=== PATIENT | male | born 1955 | race Caucasian/White ===

== ENCOUNTER 2017-01-11 13:44 | Day surgery (SDC) | payer BC ==
--- NOTE | 2017-01-11 06:08 | History and Physical Report ---
DATE: 01/11/2017. CHIEF COMPLAINT AND HISTORY OF CHIEF COMPLAINT: This patient presents with a history of an intractable lumbar radiculitis. Due to the failure of all therapy and the success of the spinal cord stimulator trial on December 26, 2016, he presents today for implantation of a permanent system. PAST MEDICAL HISTORY: Noncontributory. PAST SURGICAL HISTORY: None identified. EMPLOYMENT STATUS: Retired. MEDICATIONS ON ADMISSION: To be provided. ALLERGIES: None. REVIEW OF SYSTEMS: The patient seems appropriate and in no acute distress. The remainder of the systems review is noncontributory. PHYSICAL EXAMINATION: General: Height is 5 feet, 11 inches. Weight is 220 pounds. Vital Signs: Blood pressure is 140/80, pulse 80, respirations 20. Musculoskeletal: Current examination shows diffuse tenderness in the lumbar spine. Range of motion does produce pain throughout the low back and extending into the lower extremities. Ambulation: No assistive device utilized. Neurologic: Cranial nerves are intact. IMPRESSION: LUMBAR RADICULITIS, ICD-10 CODE M54.16 AND M54.17. PLAN: The patient is here for implantation of a permanent spinal cord stimulator after a successful trial due to the failure of all therapy and the success of his trial. The potential risks, side effects, and complications have all been carefully reviewed and discussed. Information from the woods rider also outlining the potential risks, side effects, and complications , including the CD ROM, has been provided and reviewed. The risks of dural puncture, nerve root injury, spinal headaches, and spinal cord trauma have all been discussed. He is here for permanent implant and has agreed to all of the above. The procedure will be considered outpatient, although an overnight stay will be evaluated. CYDNEY MALIN D.O. Date & Time JOB NUMBER: [id number] cc: Linette Kirkland
[~2017-01-11 13:44] MED LIST: ACETAMINOPHEN 1,000 MG/100 ML BTL IV ONE; FAMOTIDINE 20MG TABLET PO ONE; MECLIZINE 25 MG TABLET PO ONE; METOCLOPRAMIDE 10 MG TABLET PO ONE; VANCOMYCIN HCL 1,000 MG in 0.9 % SODIUM CHLORIDE 250ML 250 ML IVPB ONE
[2017-01-11] MEDS ORDERED: FENTANYL PF 100MCG/2ML VIAL IV ONE (13:45)
[2017-01-11] MEDS ORDERED: LIDOCAINE 2% MDV (20MG/ML) 20ML VIAL IV ONE (13:45)
[2017-01-11] MEDS ORDERED: MIDAZOLAM HCL 2MG/2ML VIAL IV ONE (13:45)
[2017-01-11] MEDS ORDERED: VANCOMYCIN HCL 500 MG VIAL IV ONE (13:45)
[2017-01-11] MEDS ORDERED: PROPOFOL 10 MG/ML VIAL IV ONE (13:45)
[2017-01-11] MEDS ORDERED: HYDROMORPHONE HCL 2 MG/ML VIAL IV ONE (13:45)
[2017-01-11] MEDS ORDERED: RINGERS SOLUTION,LACTATED 1,000 ML IV PRN (19:04)
[2017-01-11] MEDS ORDERED: SENNOSIDES/DOCUSATE SODIUM UD CAPSULE PO PRN ×2 (19:07)
[2017-01-11] MEDS ORDERED: AL HYDROX/MAG HYDROX 30ML UD PO PRN (19:07)
[2017-01-11] MEDS ORDERED: ACETAMINOPHEN 325 MG TAB PO PRN (19:07)
[2017-01-11] MEDS ORDERED: METOCLOPRAMIDE HCL 10 MG/2 ML VIAL IV PRN (19:07)
[2017-01-11] MEDS ORDERED: HYDROCODONE/APAP 7.5/325MG TABLET PO PRN ×2 (19:34)
[2017-01-11] MEDS ORDERED: OXYCODONE/APAP 10MG-325MG TABLET PO PRN (19:34)
[2017-01-11] MEDS ORDERED: HYDROMORPHONE HCL 1MG/ML **SYRINGE IM PRN ×2 (19:34)
[2017-01-11] MEDS: OXYCODONE/APAP 10MG-325MG TABLET PO PRN (20:00)
[2017-01-11] MEDS: CLONAZEPAM 1MG TABLET PO SCH (20:33)
[2017-01-11] MEDS ORDERED: GABAPENTIN 300 MG CAPSULE PO SCH (22:00)
[2017-01-12] MEDS: OXYCODONE/APAP 10MG-325MG TABLET PO PRN (01:32)
[2017-01-12] MEDS ORDERED: VANCOMYCIN HCL 1,000 MG in 0.9 % SODIUM CHLORIDE 250ML 250 ML IVPB SCH (02:30)
[2017-01-12] MEDS: CLONAZEPAM 1MG TABLET PO SCH (07:37)
[2017-01-12] MEDS ORDERED: VENLAFAXINE ER 37.5 MG CAPSULE PO SCH (10:00)
--- NOTE | 2017-01-12 14:52 | RADIOLOGY REPORT ---
EXAM: AP LUMBAR SPINE HISTORY: STIMULATOR IMPLANT. TECHNIQUE: AP view of the lumbar spine was obtained. Comparison: None. FINDINGS: Two stimulator leads overlie the thoracic spine extending cephalad. The leads extend to the upper T7 level. IMPRESSION: STIMULATOR LEADS OVERLYING THE THORACIC SPINE ABOVE. JOB NUMBER: [id number] MTDD
--- NOTE | 2017-01-12 16:45 | Operative Note - Ferro ---
DATE OF SURGERY: 01/11/17 PREOPERATIVE DIAGNOSIS: LUMBAR RADICULITIS, ICD-10 CODE = M54.16 AND M54.17. OPERATION: 1. FLUOROSCOPICALLY-GUIDED RIGHT EPIDURAL ACCESS T11-12. PLACEMENT OF SPINAL CORD STIMULATOR LEAD 1, A [employer] INFINION 16 WITH 16 ELECTRODES POSITIONED LEFT T7. 2. FLUOROSCOPICALLY-GUIDED EPIDURAL ACCESS RIGHT T10-11. PLACEMENT OF SPINAL CORD STIMULATOR LEAD 2, A [employer] INFINION 16 WITH 16 ELECTRODES POSITIONED RIGHT T7. 3. COMPLEX PROGRAMMING LEAD 1 OVER 20 MINUTES FOLLOWED BY COMPLEX PROGRAMMING OF LEAD 2 OVER 20 MINUTES. 4. INCISION, SUBCUTANEOUS DISSECTION, AND ANCHORING OF LEAD 1 AND LEAD 2 TO SUPRASPINOUS FASCIA USING AN ANCHORING DEVICE AND NONABSORBABLE SUTURE. 5. INCISION, SUBCUTANEOUS DISSECTION, AND CREATION OF A SUBCUTANEOUS POUCH AT RIGHT POSTERIOR GLUTEAL MARGIN FOR GENERATOR IDENTIFIED A [employer] PROGRAMMABLE RECHARGEABLE. 6. TUNNELING BETWEEN POUCHES, PLACEMENT OF EXTERNAL PORTION OF LEAD 1 AND LEAD 2 INTO GENERATOR POUCH, EACH LEAD INTERFACED WITH GENERATOR. 7. PLACEMENT OF GENERATOR POUCH SECURING TO FASCIA WITH NONABSORBABLE SUTURE. PLACEMENT OF LEADS INTO POUCH. CLOSURE OF INCISIONS, VICRYL FOR FASCIA AND RUNNING SUBCUTICULAR VICRYL FOR SKIN. DERMABOND CLOSURE. 8. COMPLEX PROGRAMMING INTERNAL GENERATOR HOME USE, TWO STIMULATORS, RECOVERY ROOM, 20 MINUTES. SURGEON: CYDNEY MALIN D.O. ANESTHESIA: LOCAL SEDATION. ANESTHESIA PROVIDER: FABIO RAHMAN CRNA. INDICATION: This patient presents with a history of intractable lumbar radiculitis. Due to the failure of all therapies, a stimulator trial was conducted with 75 to 90% pain control. Due to the failure of all therapies and the successful of the trial, he presents today for implantation of a permanent system. PROCEDURE: Intravenous line, vital sign monitoring, IV sedation, prepped and draped in sterile technique. Patient position prone. Sterile prep. Sterile technique. On the right, the skin is infiltrated at the epidural margins T11-12 and 10-11. Using two separate curved access Epimed needles with loss-of- resistance, the spaces was accessed. At 11-12, spinal cord stimulator lead 1, a [employer] Infinion 16 with 16 electrodes, positioned left at T7. With the epidural access right at 10-11, spinal cord stimulator lead 2, a [employer] Infinion 16 with 16 electrodes positioned right at T7. Complex programming of lead 1 over 20 minutes followed by complex programming of lead 2 over 20 minutes resulting in patterns of stimulation across the back and into the legs; patient indicating we were in all of the areas of the pain. He was given the option to implant, continue to program, or remove; he opted to implant. Questions repeated with the same response. The skin below both needles was infiltrated, then the incision made, and subcutaneous dissection was conducted to the supraspinous fascia. Once the needles were removed, each lead was anchored to the fascia with an anchoring device, [employer], and nonabsorbable suture. At the right posterior gluteal margin, a site picked by the patient for the generator, skin infiltrated, incision made, and subcutaneous dissection was conducted to form a pouch of suitable size and depth for the generator identified as a [employer] Programmable Rechargeable. Antibiotic irrigation. Bovie for hemostasis. A tunneling tool was then used to carry the leads into the generator pouch and each lead was interfaced with the generator. The generator was placed into the pouch and secured with a nonabsorbable suture. The leads were placed into their own pouch and then both incisions were closed Vicryl for fascia and a running subcuticular Vicryl for skin. Dermabond closure to approximate the wound. He was transported to the Recovery Room stable showing no side-effects from the procedure or the sedation. He will be kept overnight for observation because of the time of day. DISCHARGE INSTRUCTIONS IN THE MORNIN. Sites to remain clean and dry although the Dermabond will allow showering. 2. Standard medications resumed including Levaquin, the antibiotic, 500 mg once a day for 14 days. 3. All other medications resumed. 4. His activities to remain low until he is seen in the office in 5-7 days. That appointment will be scheduled by the office contacting the patient at home. He will be fitted for lumbar brace or support, which will help maintain restrictions that, if exceeded, could cause migration of the leads. The lumbar support will also apply pressure to the wounds facilitating healing and preventing seroma formation. He will wear the brace except when sleeping. All other instructions provided, numbers to contact, problems given, he was will be contacted by the office for the follow-up. cc: Dr. Tirso Espitia JOB NUMBER: [id number] MTDD
== END 2017-01-12 09:25 | disposition home or self-care (01) ==
LOC: SUR 13:44 → MEDSURG 17:50 → SUR 01-12 09:25
PROVIDERS: ATTEND Pain Medicine Interventional Pain Medicine
DX: M54.16 Radiculopathy, lumbar region (principal); M54.17 Radiculopathy, lumbosacral region; I10 Essential (primary) hypertension; E78.00 Pure hypercholesterolemia, unspecified
CPT/HCPCS: 95972; 72020; 63685; 63650 ×2; 01936; J3370 ×2; J3010; J1170; J7050

== ENCOUNTER 2017-03-03 09:41 | Day surgery (SDC) | payer BC ==
--- NOTE | 2017-03-03 07:16 | History and Physical Report ---
DATE: 03/02/2017. CHIEF COMPLAINT AND HISTORY OF CHIEF COMPLAINT: This patient presents with a history of intractable cervical radiculitis. Due to the failure of all therapy a spinal cord stimulator trial was conducted on 01/30/2017 with 75 to 85 percent pain control. Due to the failure of therapy and the success of the trial, he presents today for implantation of a permanent system. PAST MEDICAL HISTORY: Hypertension, bladder dysfunction, peripheral neuropathy. PAST SURGICAL HISTORY: Lumbar stimulator implant. MEDICATIONS ON ADMISSION: To be provided. ALLERGIES: None listed. REVIEW OF SYSTEMS: The patient is appropriate and in no acute distress. The remainder of the systems review shows [] PHYSICAL EXAMINATION: General: Height is 5 feet, 11 inches. Weight is 220 pounds. Vital Signs: Not available. HEENT: Within normal limits. Lungs: Clear. Heart: Regular rate and rhythm. Abdomen: Nontender. Musculoskeletal: Examination of the musculoskeletal system shows diffuse tenderness in the cervical spine. Range of motion produces pain into both upper extremities across what could be a distribution along the 5-6 and 6-7 pattern in thumb and first, middle, and small fingers. Hand grasp and road manager strength are somewhat reduced. Sensory field function is intact. Motor function appears to be somewhat reduced generally. Ambulation: No assistive device utilized. Neurologic: Cranial nerves are intact. IMPRESSION: CERVICAL RADICULITIS, ICD-10 CODE M54.13. PLAN: The patient is here, after a successful cervical stimulator, for implantation of a permanent system. The potential risks, side effects, and complications have been carefully reviewed and discussed. The procedure will be considered outpatient, although an overnight stay will be evaluated. JOB NUMBER: [id number] cc: Tirso Espitia M.D. SARA
[~2017-03-03 09:41] MED LIST changes: +CEFAZOLIN 2 Gram 2 GM/50 ML BAG IVPB ONE; -VANCOMYCIN HCL 1,000 MG in 0.9 % SODIUM CHLORIDE 250ML 250 ML IVPB ONE
[2017-03-03] MEDS ORDERED: BUPIVACAINE 0.75% W/EPI MPF 30ML VIAL IVP ONE (09:42)
[2017-03-03] MEDS ORDERED: PROPOFOL 10 MG/ML VIAL IV ONE (09:42)
[2017-03-03] MEDS ORDERED: LIDOCAINE 2% MDV (20MG/ML) 20ML VIAL IV ONE (09:42)
[2017-03-03] MEDS ORDERED: HYDROMORPHONE HCL 2 MG/ML VIAL IV ONE (09:42)
[2017-03-03] MEDS ORDERED: LIDOCAINE 1% W/EPI 1:200,000 MPF 30ML SQ ONE (09:42)
[2017-03-03] MEDS ORDERED: CEFAZOLIN 1G VIAL IM ONE (09:42)
[2017-03-03 10:39] LABS: BASO % 0.1 % (0-6); EOS % 1.5 % (0-6); GRAN % 68.2 % (47-80); HEMATOCRIT 47.2 % (42.0-52.0); HEMOGLOBIN 15.7 gm/dl (14.0-18.0); LYMPH % 21.5 % (16-45); MEAN CELL VOLUME 91.8 fl (81-97); MEAN CORPUSCULAR HEMOGLOBIN 30.5 pg (27-33); MEAN CORPUSCULAR HGB CONC 33.3 g/dl (32-36); MONO % 8.7 % (0-9); PLATELET COUNT 238 K/uL (130-400); RED BLOOD COUNT 5.14 M/uL (4.40-5.70); RED CELL DISTRIBUTION WIDTH 13.5 % (11.5-14.5)
[2017-03-03 10:55] LABS: PROTHROMBIN TIME (PATIENT) 10.8 SECONDS (9.5-12.1)
[2017-03-03 11:01] LABS: BLOOD UREA NITROGEN 13 mg/dL (8-23); CREATININE 0.9 mg/dL (0.7-1.2); EST GLOMERULAR FILTRATION RATE > 60 mL/min; GLUCOSE,RANDOM 132 mg/dL (74-109)
[2017-03-03] MEDS ORDERED: AL HYDROX/MAG HYDROX 30ML UD PO PRN (14:51)
[2017-03-03] MEDS ORDERED: METOCLOPRAMIDE 10 MG TABLET PO PRN (14:51)
[2017-03-03] MEDS ORDERED: HYDROCODONE/APAP 7.5/325MG TABLET PO PRN ×2 (14:51)
[2017-03-03] MEDS ORDERED: HYDROMORPHONE HCL 1 MG/ML SYRINGE IM PRN (14:51)
[2017-03-03] MEDS ORDERED: OXYCODONE/APAP 10MG-325MG TABLET PO PRN ×2 (14:51)
[2017-03-03] MEDS ORDERED: DIPHENHYDRAMINE HCL IV 50 MG/ML VIAL IVP PRN ×2 (14:51)
[2017-03-03] MEDS ORDERED: ACETAMINOPHEN 325 MG TAB PO PRN ×2 (14:51)
[2017-03-03] MEDS ORDERED: METOCLOPRAMIDE HCL 10 MG/2 ML VIAL IVP PRN (14:51)
[2017-03-03] MEDS ORDERED: SENNOSIDES/DOCUSATE SODIUM UD CAPSULE PO PRN ×2 (14:51)
[2017-03-03] MEDS ORDERED: HYDROMORPHONE HCL 2 MG/ML VIAL IM PRN (14:51)
[2017-03-03] MEDS ORDERED: TEMAZEPAM 15 MG CAPSULE PO PRN ×2 (14:51)
[2017-03-03] MEDS ORDERED: DIPHENHYDRAMINE HCL 25 MG CAPSULE PO PRN ×2 (14:51)
[2017-03-03] MEDS ORDERED: CEFAZOLIN 2 Gram 2 GM/50 ML BAG IVPB SCH (20:30)
[2017-03-03] MEDS ORDERED: 0.9 % SODIUM CHLORIDE 10ML SYR IVP SCH (22:00)
--- NOTE | 2017-03-04 19:09 | RADIOLOGY REPORT ---
EXAM: SPINE, 1 VIEW HISTORY: SPINAL CORD STIMULATOR IMPLANT. TECHNIQUE: A single AP view of the cervicothoracic spine from the level of the C1 vertebra down to the approximate T12 vertebra. COMPARISON: AP thoracolumbar spine film 01/11/17. FINDINGS: There are a couple of spinal wires overlying the mid thoracic spine with the one on the patient's left extending up to the T7 vertebra and the one on the patient's right extending to the T8 vertebra. These two were presumably the two seen on the prior 01/11/17 exam, although on the prior exam, both of them were at the T7 level. There are now a couple of new catheters/wires that extend up to the C2 level bilaterally, which are presumably new from the prior study, although the prior film only extended up to the approximate T4 level, which is below the level of which these new catheters/wires extend into the spinal canal. There is some relative elevation of the right hemidiaphragm slightly more pronounced than before. IMPRESSION: 1. A COUPLE OF CATHETERS/WIRES EXTEND UP TO THE C2 LEVEL, PRESUMABLY NEW. 2. A COUPLE OF CATHETERS/WIRES OVERLYING THE MID TO LOWER THORACIC SPINE DESCRIBED ABOVE PRESUMABLY WERE PRESENT ON THE 01/11/17 EXAM WELL, ALTHOUGH THE ONE ON THE PATIENT'S RIGHT PROJECTS MORE INFERIORLY THAN ON THE PRIOR EXAM AND CLINICAL CORRELATION TO WHETHER THIS HAS BEEN WITHDRAWN A BIT FROM THE PRIOR STUDY IS SUGGESTED. JOB NUMBER: [id number] MTDD
--- NOTE | 2017-03-06 07:00 | Operative Note - Ferro ---
DATE OF SURGERY: 03/03/2017. PREOPERATIVE DIAGNOSIS: CERVICAL RADICULITIS, ICD-10 CODE M54.13. POSTOPERATIVE DIAGNOSIS: CERVICAL RADICULITIS, ICD-10 CODE M54.13. OPERATION: 1. Fluoroscopically guided epidural access left T1-2. Placement of spinal cord stimulator lead 1, a [employer] Infinion 16 with 16 electrodes, positioned left C2. 2. Fluoroscopically guided epidural access left T2-3. Placement of spinal cord stimulator lead 2, a [employer] Infinion 16 with 16 electrodes, positioned right C2. 3. Complex programming of lead 1 over 20 minutes followed by complex programming of lead 2 over 20 minutes. 4. Incision, subcutaneous dissection, and anchoring of lead 1 and lead 2 to the supraspinous fascia with a [employer] locking anchor. 5. Incision, subcutaneous dissection, and creation of subcutaneous pouch at left flank for placement of the generator identified as a [employer] programmable rechargeable. 6. Tunneling between pouches. Placement of the external portion of lead 1 and lead 2 into generator pouch, each lead interfaced to the generator. 7. Anchoring of generator into posterior pouch. Placement of leads into pouch with closure of both incisions with Vicryl for the fascia and running subcuticular Vicryl for the skin. Dermabond closure approximating the edges of both wounds. 8. Complex recovery room programming of the internal generator for home use, two stimulators, for 20 minutes. SURGEON: Houston Riley D.O. ANESTHESIA: Local sedation. ANESTHESIA PROVIDER: Richie Gallego CRNA. INDICATION: This patient presents with a history of intractable cervical radiculitis. Due to the failure of all therapy and the success of the stimulator trial, he is here for implantation of a permanent system. DESCRIPTION OF PROCEDURE: Intravenous lines, vital sign monitoring, and intravenous sedation. Prepped and draped with sterile technique. Under imaging , the epidural interspaces on the left at T1-2 and 2-3 were infiltrated. Using two standard needles the epidural space was accessed. At 1-2 spinal cord stimulator lead 1, a [employer] Infinion 16 with 16 electrodes, was positioned left at C2. With the epidural access at T2-3, spinal cord stimulator lead 2, a [employer] Infinion 16 with 16 electrodes, was positioned right at C2. Complex programming of lead 1 was followed by complex programming of lead 2, each over 20 minutes. This resulted in patterns of stimulation across the neck and into the shoulders and arms. The patient indicated we were in all of the areas of his pain. He was given the options to implant, continue to program, or remove. He opted to implant. The questions were repeated with the same response. He was then resedated. The skin above an below both needles was infiltrated with local. An incision was made and subcutaneous dissection was conducted to the supraspinous fascia. The needles were removed and then each lead was anchored to the fascia with an anchoring device, a [employer] locking anchor, and nonabsorbable suture. At the left flank, a site for the generator picked by the patient, the skin was infiltrated. An incision was made and subcutaneous dissection was conducted to form a pouch of suitable size and depth for the generator. Antibiotic irrigation and Bovie for hemostasis. The leads were then tunneled into the generator pouch. Each lead was then interfaced directly with the generator. The generator was then placed into the pouch and secured with a nonabsorbable suture. The leads were then placed into their pouch, and then both incisions were closed with Vicryl for the fascia and a running subcuticular Vicryl for the skin. A Dermabond closure system was placed over both incisional sites. He was transported to the recovery room stable, showing no side effects from the procedure or the sedation. When fully awake and alert, complex programming of the generator for the two leads was then performed over 20 minutes. This re- established stimulation of pain control to all of the appropriate areas. He will be kept overnight for observation and will be discharged in the morning. DISCHARGE INSTRUCTIONS: 1. The sites are to remain clean and dry, although the Dermabond will allow showering in 24 hours. 2. Standard medications to be resumed including an antibiotic which will be selected based upon his allergies and sensitivities for 10 to 14 days. 3. His activities should remain low until he returns to the office in five to seven days for evaluation of the sites. The office is to contact the patient to set up this appointment. 5. All other instructions were provided and numbers to contact with problems were given. At that point he will be discharged in the morning. JOB NUMBER: [id number] cc: Linette Silverio
== END 2017-03-03 17:05 | disposition home or self-care (01) ==
LOC: SUR 09:41 → MEDSURG 14:47 → SUR 17:05
PROVIDERS: ATTEND Pain Medicine Interventional Pain Medicine
DX: M54.13 Radiculopathy, cervicothoracic region (principal); I10 Essential (primary) hypertension; E78.00 Pure hypercholesterolemia, unspecified; L76.22 Postprocedural hemorrhage of skin and subcutaneous tissue following other procedure; M54.16 Radiculopathy, lumbar region; Y83.8 Other surgical procedures as the cause of abnormal reaction of the patient, or of later complication, without mention of misadventure at the time of the procedure; Y75.3 Surgical instruments, materials and neurological devices (including sutures) associated with adverse incidents; Z87.891 Personal history of nicotine dependence
CPT/HCPCS: 63685; 63650 ×2; 01936; 95972; 99283 ×2; 85025; 85730; 85610; 80048; 85002; 72020; J1170; J0690; J3490; C1820; C1883

== ENCOUNTER 2017-03-03 21:00 | Emergency (ER) | payer BC ==
--- NOTE | 2017-03-03 21:13 | Emergency Department Record ---
History of Present Illness - General Chief Complaint: Wound, check Stated Complaint: POST SURGERY BLEEDING Time Seen by Provider: 03/03/17 21:10 Source: Patient Mode of arrival: Ambulatory Limitations: No limitations - History of Present Illness Initial Comments: 62 yo male presents to ED for evaluation of post-operative bleeding from his incision site this evening. Patient reports that he underwent lumbar nerve stimulator earlier today, significant other noticed bleeding from his operative site this evening. Patient denies injury to the area, denies blood thinner usage, denies fevers, chills, or pain symptoms at his incision site. Patient contacted his surgeon who asked the patient to come to the ED for evaluation. MD Complaint: Wound re-check Onset/Timin -: Days(s) Initial Visit For: Other (bleeding) Associated Symptoms: None - Related Data Home Medications Medication Instructions Recorded Confirmed Last Taken Cyanocobalamin (Vitamin B-12) 100 mcg PO DAILY 03/03/17 03/03/17 Unknown [Vitamin B-12] Divalproex Sodium [Depakote ER] 250 mg PO Q8H 03/03/17 03/03/17 Unknown Lisinopril [Lisinopril] 20 mg PO DAILY 03/03/17 03/03/17 Unknown Propranolol HCl 40 mg PO BID 03/03/17 03/03/17 Unknown Sildenafil Citrate [Viagra] 1 tab PO DAILY PRN 03/03/17 03/03/17 Unknown Simvastatin [Simvastatin] 20 mg PO QPM 03/03/17 03/03/17 Unknown Venlafaxine HCl [Venlafaxine HCl 150 mg PO QAM 03/03/17 03/03/17 Unknown ER] Allergies Allergy/AdvReac Type Severity Reaction Status Date / Time levofloxacin [From Levaquin] Allergy HIVES Verified 01/09/17 15:55 metronidazole [From Flagyl] Allergy HIVES Verified 01/09/17 15:55 primadone Allergy HIVES Uncoded 01/09/17 15:55 Review of Systems Constitutional: Denies: Chills, Fever, Malaise, Night sweats Eyes: Denies: Eye discharge, Eye pain ENT: Denies: Congestion, Ear pain, Epistaxis Respiratory: Denies: Cough, Dyspnea Cardiovascular: Denies: Chest pain, Dyspnea on exertion Endocrine: Denies: Fatigue, Heat or cold intolerance Gastrointestinal: Denies: Abdominal pain, Nausea, Vomiting Genitourinary: Denies: Incontinence, Retention Musculoskeletal: Denies: Arthralgia, Back pain Skin: Reports: Other (post-operative bleeding from hi sincision site). Denies: Bruising, Change in color Neurological: Denies: Abnormal gait, Confusion, Headache, Seizure Psychiatric: Denies: Anxiety Hematological/Lymphatic: Denies: Anemia, Blood Clots Past Medical History - SOCIAL HISTORY Smoking Status: Former smoker - RESPIRATORY Hx Respiratory Disorders: No - CARDIOVASCULAR Hx Cardio Disorders: Yes Hx Hypertension: Yes (on meds good control) Comment:: high chol; - NEURO Hx Neuro Disorders: Yes Hx Neuropathy: Yes (extremities) Comment:: pt has tremor went away with SCS trial - GI Hx GI Disorders: Yes Hx Diverticulitis: Yes (chronic last flare up 1 year ago) Hx Reflux: Yes - Hx Genitourinary Disorders: Yes Hx Kidney Stones: Yes - ENDOCRINE Hx Endocrine Disorders: Yes Hx Diabetes: Yes (diet control no sugar) Comment:: used to be on oral meds no need now due to diet and weight loss - MUSCULOSKELETAL Hx Musculoskeletal Disorders: Yes Hx Arthritis: Yes Hx Back Injury: Yes - PSYCH Hx Psych Problems: Yes Hx Anxiety: Yes Hx Depression: Yes (due to pain and not being able to do the things he likes to do) - HEMATOLOGY/ONCOLOGY Hx Hematology/Oncology Disorders: Yes Hx Blood Transfusions: Yes Hx Blood Transfusion Reaction: No Family Medical History Hx Diabetes: Mother Hx Heart Disease: Mother Physical Exam - General General Appearance: Alert, Oriented x3, Cooperative, Mild distress Limitations: No limitations - Head Head exam: Atraumatic, Normocephalic, Normal inspection Head exam detail: negative: Abrasion, Contusion, Vasquez's sign, General tenderness, Hematoma, Laceration - Eye Eye exam: Normal appearance. negative: Conjunctival injection, Periorbital swelling, Periorbital tenderness, Scleral icterus - ENT Ear exam: negative: Auricular hematoma, Auricular trauma Nasal Exam: negative: Active bleeding, Discharge, Dried blood, Foreign body Mouth exam: negative: Drooling, Laceration, Tongue elevation - Neck Neck exam: Normal inspection. negative: Meningismus, Tenderness - Respiratory Respiratory exam: Normal lung sounds bilaterally. negative: Rales, Respiratory distress, Rhonchi, Stridor - Cardiovascular Cardiovascular Exam: Regular rate, Normal rhythm, Normal heart sounds - GI/Abdominal GI/Abdominal exam: Soft. negative: Rebound, Rigid, Tenderness - Rectal Rectal exam: Deferred - exam: Deferred - Extremities Extremities exam: Normal inspection. negative: Pedal edema, Tenderness - Back Back exam: Reports: Other (Small amount of post-operative oozing present, bleeding easily controlled with mild compression). Denies: CVA tenderness (R), CVA tenderness (L) - Neurological Neurological exam: Alert, Normal gait, Oriented X3 - Psychiatric Psychiatric exam: Normal affect, Normal mood - Skin Skin exam: Normal color. negative: Abrasion Type of lesion: negative: abrasion Course Vital Signs 03/03/17 21:06 Temperature 98 F Pulse Rate [ 54 L Pulse Ox Probe] Respiratory 24 Rate Blood Pressure 153/82 [Right Arm] Pulse Ox 95 - Reevaluation(s) Reevaluation #1: 03/03/17 21:16 Case was discussed with Dr. Riley, will apply mild compression dressing to the area with instructions for phone follow-up with Dr. Riley tomorrow. Patient agrees with the plan as discussed and appears stable for discharge at this time. Disposition Disposition: Discharge Clinical Impression: Post-op bleeding Qualifiers: Surgical complication system/body Area: subcutaneous tissue Procedure type: dermatologic Qualified Code(s): L76.21 - Postprocedural hemorrhage of skin and subcutaneous tissue following a dermatologic procedure Disposition: Home, Self-Care Condition: (2) Stable Instructions: Postoperative Bleeding (ED) Additional Instructions: Return to ED if your symptoms worsen or if you have any concerns. Leave compression dressing in place until tomorrow. Follow-up with Dr. Riley tomorrow by phone. Forms: Patient Portal Access Time of Disposition: 21:18 Quality - Quality Measures Quality Measures: N/A - Blood Pressure Screening Does Patient Have Any of the Following: Active Dx of HTN Blood Pressure Classification: Pre-Hypertensive BP Reading Systolic Measurement: 153 Diastolic Measurement: 82 Screening for High Blood Pressure: Patient Exclusion, Hx of HTN [[id number]]
== END 2017-03-03 21:34 | disposition home or self-care (01) ==
LOC: ER 21:00
DX: L76.22 Postprocedural hemorrhage of skin and subcutaneous tissue following other procedure (principal); M54.16 Radiculopathy, lumbar region; Y82.8 Other medical devices associated with adverse incidents; Y75.3 Surgical instruments, materials and neurological devices (including sutures) associated with adverse incidents; I10 Essential (primary) hypertension; Z87.891 Personal history of nicotine dependence

== ENCOUNTER 2018-05-16 06:22 | Day surgery (SDC) | payer BC ==
--- NOTE | 2018-04-25 06:23 | History and Physical - Ferro ---
CHIEF COMPLAINT/HISTORY OF CHIEF COMPLAINT: This patient presents with a history of intractable lumbar radiculopathy. Due to the failure of therapy a spinal cord stimulator implant on 01/11/17. At the time the pain pattern was consistently low back and it appeared to be somewhat into the lower extremities. Over time in a very brief period of time his pain rapidly progressed involving higher as well as outer lower levels of his extremities and his low back. Despite multiple efforts at reprogramming the system was initially placed to treat a different type of a pain pattern. His pain was now extending beyond the current systems ability to control pain. Despite multiple reprogramming efforts we were unable to keep up with the changing pattern of pain. The new generator WaveWriter has a different technology which allows us to superimpose waveforms and to improve the extent to which stimulation patterns can be moved up as well as extend laterally and inferiorly. Because of the new technology it was felt that changing his generator would be a minimally invasive method to improve stimulation to control his new pain without changing leads. PAST MEDICAL HISTORY: Noncontributory. PAST SURGICAL HISTORY: Spinal cord stimulator implant. EMPLOYMENT STATUS: Retired. MEDICATIONS ON ADMISSION: List to be provided. ALLERGIES: None. SYSTEMS REVIEW: The patient is appropriate in no acute distress. The remainder of the systems review is noncontributory. PHYSICAL EXAMINATION: Height is 5'11", weight is 220. No vital signs. HEENT: Within normal limits. LUNGS: Clear. HEART: Rapid and regular. ABDOMEN: Nontender. MUSCULOSKELETAL: Examination of the musculoskeletal system shows a generator into the right posterior gluteal margin. The incision is intact. Midline incision for the leads is noted. Both incisions are intact. Primary pain currently now extending across both lower extremities although his sensory dumont are intact. There is no motor weakness. NEUROLOGIC: Cranial nerves are intact. IMPRESSION: 1. LUMBAR RADICULOPATHY, ICD-10 CODE M54.16 AND M54.17. 2. SPINAL CORD STIMULATOR INTERNAL GENERATOR. PLAN: The patient is here for a battery generator swap to the new JauntWriter technology [employer] [facility] [employer]. The procedure will be considered outpatient, although an overnight stay will be evaluated. JOB NUMBER: [id number] [facility]
[2018-05-16] MEDS ORDERED: KETAMINE HCL 100MG/1ML VIAL INJ ONE (06:23)
[2018-05-16] MEDS ORDERED: LIDOCAINE 1% W/EPI 1:200,000 MPF 30ML SQ ONE (06:23)
[2018-05-16] MEDS ORDERED: CEFAZOLIN 1G VIAL IM ONE (06:23)
[2018-05-16] MEDS ORDERED: MIDAZOLAM HCL 2MG/2ML VIAL IV ONE (06:23)
[2018-05-16] MEDS ORDERED: LIDOCAINE 2% MDV (20MG/ML) 20ML VIAL IV ONE (06:23)
[2018-05-16] MEDS ORDERED: PROPOFOL 10 MG/ML VIAL IV ONE (06:23)
[2018-05-16] MEDS ORDERED: FENTANYL PF 100MCG/2ML VIAL IV ONE (06:23)
[2018-05-16] MEDS ORDERED: BUPIVACAINE 0.5% W/EPI MPF 30 ML VIAL IVP ONE (06:23)
--- NOTE | 2018-05-16 06:28 | History and Physical - Ferro ---
CHIEF COMPLAINT/HISTORY OF CHIEF COMPLAINT: This patient presents with a history of an intractable lumbar radiculopathy. On 01/11/17 a spinal cord stimulator implant was performed for control of his lower extremity pain and although initially this appeared to be working quite well over time the system was unable to keep up or manage the pain which was changing rapidly across his back and into his legs. Multiple attempts at reprogramming were unable to control the new areas of pain. It was felt changing his generator to the new WaveWriter technology which provides more programmability, different waveforms, and the ability to combine waveforms would be of value. He is here for a battery exchange. PAST MEDICAL HISTORY: Noncontributory. PAST SURGICAL HISTORY: Spinal cord stimulator. MEDICATIONS ON ADMISSION: List to be provided. ALLERGIES: None. SYSTEMS REVIEW: The patient is appropriate in no acute distress. The remainder of the systems review is noncontributory. PHYSICAL EXAMINATION: Height is 5'11", weight is 220. Vital signs are not available. HEENT: Within normal limits. LUNGS: Clear. HEART: Rapid and regular. ABDOMEN: Nontender. MUSCULOSKELETAL: Examination of the musculoskeletal system shows the generator for the stimulator at the right posterior gluteal margin. The incisional site is intact. The lower extremity function is intact. There is extensive pain moving across the upper back and into both legs. Motor and sensory field function shows sensory motor weakness in both legs. NEUROLOGIC: Cranial nerves are intact. IMPRESSION: 1. INTRACTABLE LUMBAR RADICULOPATHY, ICD-10 CODE M54.16 AND M54.17. 2. SPINAL CORD STIMULATOR INTERNAL GENERATOR. PLAN: The patient is here for replacement of the generator without effecting lead placement. The procedure will be considered outpatient, although an overnight stay will be evaluated. JOB NUMBER: [id number] [facility]
--- NOTE | 2018-05-17 17:06 | Operative Note ---
DATE OF SURGERY: 05/16/18 PREOPERATIVE DIAGNOSES: 1. LUMBAR RADICULOPATHY, ICD-10 CODE = M54.16 AND M54.17. 2. SPINAL CORD STIMULATOR INTERNAL GENERATOR. OPERATION: FLUOROSCOPICALLY-GUIDED INCISION, SUBCUTANEOUS DISSECTION, REMOVAL AND REPLACEMENT OF AN INTERNAL PULSE GENERATOR SPINAL CORD STIMULATOR RIGHT POSTERIOR GLUTEAL MARGIN. SURGEON: CYDNEY MALIN D.O. ANESTHESIA: LOCAL SEDATION. ANESTHESIA PROVIDER: BRIANA NIETO CRNA. INDICATION: This patient presents with a history of intractable lumbar radiculopathy. Over time, his pain pattern has changed migrating up and moving down and out into areas that the pain initially was not. The ability of the current system and generator to keep up with the changing patterns of pain has been unsuccessful. He is here for a battery change and the new generation generator, which will provide more pain control through improved programming characteristics, waveform applications, and overlapping waveform abilities. PROCEDURE: Intravenous line, vital sign monitoring, IV sedation, prepped and draped sterile technique. Patient prone. Previous incision for the generator infiltrated, incision made, and subcutaneous dissection was conducted to the generator, which was then exteriorized. The internal generator was then from the internal leads. The generator WaveWriter placed onto the field and interfaced with the indwelling leads. Antibiotic irrigation and Bovie for hemostasis. The generator was placed back into the pouch and incision was closed using STRATAFIX suture 2-0 fascia, 3-0 skin. Dermabond closure. He was transported to the Recovery Room stable. In the Recovery Room, complex programming over 20 minutes re-establishing stimulation and pain control to all of the appropriate areas. He was instructed on the use of the system, provided information and error messaging, and then prepared for discharge. DISCHARGE INSTRUCTIONS: 1. Sites remain clean and dry. No showering or bathing in any way that would disrupt dressings. Although the Dermabond will allow showering, he should not sit in water. 2. Standard medications resumed including Keflex. He will take 500 mg four times a day for 14 days. 3. The office will contact the patient in 12-24 hours to set up a time in 7-10 days to evaluate the sites. Until then, he is to keep his activities controlled. All other instructions provided, numbers provided, problems given. He was then discharged. cc: Dr. Tirso Espitia JOB NUMBER: [id number] [facility]
== END 2018-05-16 10:10 | disposition home or self-care (01) ==
LOC: SUR 06:22
PROVIDERS: ATTEND Pain Medicine Interventional Pain Medicine
DX: M54.16 Radiculopathy, lumbar region (principal); M54.17 Radiculopathy, lumbosacral region; I10 Essential (primary) hypertension; E78.00 Pure hypercholesterolemia, unspecified; G47.33 Obstructive sleep apnea (adult) (pediatric); E11.9 Type 2 diabetes mellitus without complications
CPT/HCPCS: 63685; 00300; 95972; 36416; 82948; J3010; J0690; J3490; C1820